=== PATIENT | female | born 1995 | race Caucasian/White ===

== ENCOUNTER 2019-11-16 12:43 | Observation (INO) ==
[2019-11-16] MEDS ORDERED: ALBUTEROL HFA 8 GM INHALER INH PRN ×2 (15:30→16:49)
[2019-11-16] MEDS ORDERED: ACETAMINOPHEN 500 MG TAB PO PRN (15:30)
[2019-11-16 16:00] LABS: Basophils # (auto) 0.02 K/uL (0-0.2); Basophils % (auto) 0.5 %; Eosinophils # (auto) 0.13 K/uL (0-0.5); Hematocrit (blood only) 39.7 % (37-47); Hemoglobin 12.4 g/dL (12.0-16.0); Lymphocytes # (auto) 1.84 K/uL (1.2-3.4); Mean Corpuscular Hemoglobin 29.5 pg (25-34); Mean Corpuscular Hgb Conc 31.2 g/dL (32-36); Mean Corpuscular Volume 94.3 fL (80-100); Mean Platelet Volume 10.1 fL (7.4-10.4); Monocytes # (auto) 0.28 K/uL (0.11-0.59); Monocytes % (auto) 6.4 %; Neutrophils # (auto) 2.11 K/uL (1.4-6.5); Neutrophils % (auto) 48.1 %; Platelet Count 146 K/uL (130-400); RDW Coefficient of Variation 13.3 % (11.5-14.5); RDW Standard Deviation 45.6 fL (36.4-46.3); Red Blood Count 4.21 M/uL (4.2-5.4); White Blood Count 4.38 K/uL (4.8-10.8)
[2019-11-16] MEDS ORDERED: OXYCODONE HCL IR 5 MG TAB (IMMEDIATE RELEASE) PO PRN (16:00)
[2019-11-16] MEDS: SODIUM CHLORIDE 0.9% 1000ML 1,000 ML IV SCH (16:11)
[2019-11-16 16:17] LABS: BUN Creatinine Ratio 27.9 (10-20); Blood Urea Nitrogen 17 mg/dl (7-18); Calcium 8.7 mg/dl (8.5-10.1); Carbon Dioxide 27 mmol/L (21-32); Chloride 108 mmol/L (98-107); Glucose 76 mg/dl (70-99); Potassium 4.2 mmol/L (3.5-5.1); Sodium 140 mmol/L (136-145)
--- NOTE | 2019-11-16 16:27 | History and Physical Report ---
DATE OF ADMISSION: 11/16/2019 CHIEF COMPLAINT: Right hip pain. SUBJECTIVE: The patient is a 24-year-old female with insidious onset of right hip and groin pain. She denies a history of trauma or fall. 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 She presented to the [facility] on 11/15/2019 for evaluation. X-rays and CAT scan revealed a nondisplaced right hip intertrochanteric fracture. She was sent home and referred to our office for evaluation. Today in our office, repeat x-rays revealed a nondisplaced hairline fracture of the right hip intertrochanteric region. After discussion with Dr. Ibrahim, it is recommended the patient be admitted to the hospital for cannulated screw fixation of her fracture. PAST MEDICAL HISTORY: Asthma, ADHD. PAST SURGICAL HISTORY: Oral surgery, tubes in ears as a child. MEDICATIONS: Include Ventolin inhaler 2 puffs q. 4-6 hours p.r.n., methylphenidate 40 mg q.a.m., women's multivitamin, Claritin daily, control daily. ALLERGIES: PENICILLIN, REACTION UNKNOWN. 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 PHYSICAL EXAMINATION: GENERAL: Well-nourished, well-developed, thin young female, who appears her stated age. HEENT: Normocephalic, atraumatic. Extraocular movements intact. Oropharynx pink and moist. NECK: Supple without adenopathy. LUNGS: Clear to auscultation bilaterally. HEART: Regular rate and rhythm. ABDOMEN: Soft, nontender, nondistended. EXTREMITIES: She has been nonweightbearing with crutches. Her right hip is irritable to passive range of motion. X-RAYS: X-rays and CT from the [facility] were reviewed as well as x-rays from our office today and shows a nondisplaced, vertical, hairline fracture through the intertrochanteric region. ASSESSMENT: A 24-year-old female with nondisplaced right hip fracture. PLAN: Above discussed with the patient. We will admit her to the hospital today. She will be strict nonweightbearing on the right lower extremity. Plan will be for ORIF of her fracture tomorrow with Dr. Ibrahim. We will make her n.p.o. after midnight. We will ask for medical clearance and proceed as indicated. Attending addendum: Patient seen and examined agree with above assessment and plan. MTDD
[2019-11-16] MEDS ORDERED: DiphenhydrAMINE HCL 50 MG/ML VIAL IV PRN (16:43)
[2019-11-16] MEDS ORDERED: NALOXONE HCL 0.4 MG/1 ML VIAL/CARP IV PRN (16:46)
[2019-11-16] MEDS ORDERED: bisacodyL 10 MG SUPP PR PRN (16:46)
[2019-11-16] MEDS ORDERED: MAGNESIUM HYDROXIDE SUSP 30 ML UDC PO PRN (16:46)
[2019-11-16] MEDS ORDERED: MoRPHine SULFATE 2 MG/ML CARP IV PRN (16:46)
--- NOTE | 2019-11-16 17:18 | Consultation ---
Date of Consultation November 16, 2019 Assessment & Plan (1) Closed fracture of right hip: Pt with closed, nondisplaced Right hip fracture without reported trauma. Pre-op labs unremarkable. No current asthma symptoms. -Pt low to moderate surgical risk -Ortho on board and plans for surgical procedure tomorrow -NPO midnight -DVT prophylaxis -SCDs -Continue oxycodone prn pain. If pt would develop recurrent itching plan to hold and give prn Benadryl -Morphine prn pain -Pre-op Covid testing pending (2) Asthma: No current asthma symptoms -Continue albuterol prn (3) ADHD: -Continue methylphenidate DVT Prophylaxis -SCDs Disposition per primary team Follows with Dr Petty for routine care Pt was seen and care coordinated with Dr Barney. See addendum Thank you for this consultation. We will follow the patient with you during their hospital stay. You can reach a member of the [facility] Hospitalist Team 27/10 via pager @ [phone]. Supervising Physician Co-Signing Physician Notes Patient is a 23-year-old female with history of asthma, ADHD and no other significant medical history presents with history of right hip pain which is been ongoing for last few days. Right hip pain is worse with any movement and with weightbearing. Imaging studies suggestive of nondisplaced cortical fracture base right femoral neck, partial intertrochanteric extension. Patient denies any trauma or fall. Denies any chest pain, shortness of breath, dizziness, nausea, abdominal pain. Offers no other complaints. On exam patient is moderately built and nourished, no apparent distress, normocephalic atraumatic, lungs are clear to auscultation, S1-S2, no murmur, abdomen soft, nontender, normal bowel sounds, right hip tender to palpation, decreased range of movement, grossly no focal neurologic deficits. Patient is consulted for preop medical clearance. Her asthma is well controlled and currently has no signs of exacerbation. Plan for possible surgery for right hip fracture tomorrow. Pain control, activity, DVT prophylaxis as per primary team. Continue bowel regimen to prevent constipation. Monitor for postop anemia. Nebs PRN for asthma. Continue methylphenidate. Agree with holding OCPs. I personally reviewed the record. Patient is interviewed and examined at bedside. Patient's care is coordinated with Dariana Herr PA-C. Please refer to the documentation above for details of patient's presentation and for discussion of other issues. History of Present Illness Requesting Physician: Dr Ibrahim Reason for Consultation: Pre-op evaluation Attending Physician: Kraig Ibrahim DO History of Present Illness Pt is 24 y/o F with PMH asthma, ADHD seen in consultation for pre-op evaluation. Pt with h/o right hip pain and was seen in ER yesterday and had CT hip with nondisplaced cortical fracture base right femoral neck. She was given crutches, oxycodone and had follow up with ortho today. Pt is admitted to hospital today for planned surgical procedure tomorrow. Pt denies any history of trauma, or any falls or known injuries. Reports walks for her job. Denies LE paresthesias. Denies h/o prior fractures. Pt reports takes Flovent only in the winter months for her asthma. Currently reports asthma is well controlled and denies any SOB, wheezing, CP, cough, fever or chills. Denies h/o other steroid use. Denies diaphoresis, N/V/D/C, PARKS, dizziness, syncope, vision changes, neck pain, orthopnea, palpitations, sore throat, choking, otalgia, rhinorrhea, abdominal pain, paresthesias, extremity weakness, extremity edema, rashes, urinary symptoms. Allergies Allergy/AdvReac Type Severity Reaction Status Date / Time Penicillins Allergy Severe Swelling Verified 11/15/19 21:36 of throat Home Medications Home Medications Medication Instructions Recorded Confirmed Type albuterol sulfate [Ventolin HFA] 2 puff INHALATION QID PRN 11/15/19 11/16/19 History desogestrel-ethinyl estradiol 1 tab PO DAILY 11/15/19 11/16/19 History [Apri] loratadine [Claritin] 10 mg PO DAILY PRN 11/15/19 11/16/19 History methylphenidate HCl 40 mg PO QAM 11/15/19 11/16/19 History hgpyasbb-budv-AD-calcium-mins 1 tab PO DAILY 11/15/19 11/16/19 History [Women's One Daily] Patient History Medical History (Updated 11/16/19 @ 17:17 by Dariana Herr PA-C) ADHD Asthma Asthma exacerbation Surgical History (Updated 11/16/19 @ 17:17 by Dariana Herr PA-C) History of wisdom tooth extraction Family History (Updated 11/16/19 @ 17:23 by Dariana Herr PA-C) Grandfather Leukemia Other Anxiety Depression Social History Smoking Status: Never smoker Hx Alcohol Use: No Hx Substance Use: No Preferred Language: Citizen Of The [place] Communication Ability: Effective Line Director Required: No Beliefs That Will Affect Care: None Current Living Situation: Family Current Living Situation Comment: boyfriend and parents Feels Safe at Home: Yes Safety Concerns: Feels Safe At This Time Review of Systems Review of Systems: All systems reviewed & are unremarkable except as noted in HPI & below Physical Exam Physical Exam: General: no distress, WDWN Head: normocephalic, atraumatic Eyes: conjunctiva non-injected, anicteric ENT: normal inspection external ears, nose, mucous membranes moist Neck: supple, trachea midline Lungs: clear, no respiratory distress, no wheezing/rhonchi/rales CV: RRR, no murmur,no pretibial edema Abd: normal BS, soft, non-tender Ext: no cyanosis, no calf tenderness; Right hip without edema or ecchymosis, tenderness to palpation lateral aspect hip, sensation to light touch distal extremities intact Neuro: A&O x 3, no focal deficits noted, normal affect Skin: warm, dry Results & Data ([facility]) Vital Signs (Past 12 Hours) Vital Signs Temp Pulse Resp BP Pulse Ox 11/16/19 14:21 36.6 C 57 L 20 121/81 99 Laboratory Results Short CBC 11/16/19 Range/Units 15:20 WBC 4.38 L (4.8-10.8) K/uL Hgb 12.4 (12.0-16.0) g/dL Hct 39.7 (37-47) % Plt Count 146 (130-400) K/uL BMP 11/16/19 15:20 Sodium 140 Potassium 4.2 Chloride 108 H Carbon Dioxide 27 BUN 17 Creatinine 0.61 Glucose 76 Calcium 8.7 (1) Closed fracture of right hip Encounter type: initial encounter Qualified Code(s): S72.001A - Fracture of unspecified part of neck of right femur, initial encounter for closed fracture
[2019-11-16 19:54] LABS: Pregnancy Test, Urine Negative (Negative)
[2019-11-16] MEDS: DOCUSATE SODIUM 100 MG CAP PO SCH (20:09)
[2019-11-16] MEDS: DOCUSATE SODIUM/SENNA 50/8.6MG TAB PO SCH (20:09)
[2019-11-16] MEDS ORDERED: HYDROCODONE/ACETAMOPHEN 5/325MG TAB PO PRN (21:14)
[2019-11-16] MEDS: LORATADINE 10 MG TAB PO SCH (22:12)
[2019-11-16 22:42] LABS: Prothrombin Time 10.7 Seconds (9.0-12.0)
[2019-11-17] MEDS ORDERED: CLINDAMYCIN 600 MG/54 ML BAG IV SCH (06:00)
[2019-11-17] MEDS: SODIUM CHLORIDE 0.9% 1000ML 1,000 ML IV SCH ×2 (06:44→19:44)
[2019-11-17] MEDS: DOCUSATE SODIUM 100 MG CAP PO SCH ×2 (09:12→20:54)
[2019-11-17] MEDS: PANTOprazole 40 MG TAB PO SCH (09:12)
[2019-11-17] MEDS: METHYLPHENIDATE HCL 10 MG TABLET PO SCH (09:21)
[2019-11-17] MEDS ORDERED: PROPOFOL IV EMULSION 10 MG/ML 20 ML VIAL IV ONE (12:34)
[2019-11-17] MEDS ORDERED: LIDOCAINE HCL 2% 2 ML VIAL/AMP(20MG/ML) INFIL ONE (12:34)
[2019-11-17] MEDS ORDERED: DEXAMETHASONE SOD INJ 4 MG/ML VIAL ONE ×2 (12:34→14:53)
[2019-11-17] MEDS ORDERED: fentaNYL citrate 100 MCG/2 ML VIAL ONE (12:35)
[2019-11-17] MEDS ORDERED: MIDAZOLAM HCL 1 MG/ML 2ML VIAL ONE (12:35)
--- NOTE | 2019-11-17 12:54 | Anesthesiology Consultation ---
Date of Service November 17, 2019 Assessment & Plan Chart Review Chart Review: Acceptable Risk for Surgery Consults Requested none History Surgery Operation Date: 11/17/19 08:50 Proposed Procedures p Open Reduction Internal Fixation of Right Hip with 7.3 Cannulated Screw - Kraig Ibrahim DO Height/Weight Height: 5 ft 3 in Weight: 48.3 kg Allergies Allergy/AdvReac Type Severity Reaction Status Date / Time Penicillins Allergy Severe Swelling Verified 11/15/19 21:36 of throat oxycodone AdvReac Mild itch Verified 11/16/19 21:14 Medications Home Medications Medication Instructions Recorded Confirmed Last Taken albuterol sulfate [Ventolin HFA] 2 puff INHALATION QID PRN 11/15/19 11/16/19 Unknown desogestrel-ethinyl estradiol 1 tab PO DAILY 11/15/19 11/16/19 11/15/19 [Apri] loratadine [Claritin] 10 mg PO DAILY PRN 11/15/19 11/16/19 Unknown methylphenidate HCl 40 mg PO QAM 11/15/19 11/16/19 11/16/19 ssgqmhzj-yjnj-EQ-calcium-mins 1 tab PO DAILY 11/15/19 11/16/19 Unknown [Women's One Daily] Active Medications Generic Name Dose Route Start Last Admin Trade Name Albertoq PRN Reason Stop Dose Admin Docusate Sodium 100 mg 11/16/19 21:00 11/17/19 09:12 Docusate Sodium 100 Mg Cap PO 12/16/19 20:59 Not Given BID NIMO Sodium Chloride 1,000 mls @ 60 mls/hr 11/16/19 15:25 11/17/19 06:44 Nss 1000ml IV 12/16/19 15:24 60 mls/hr .[id number] NIMO Administration Loratadine 10 mg 11/16/19 21:15 11/16/19 22:12 Loratadine 10 Mg Tab PO 12/16/19 21:14 10 mg HS NIMO Administration Methylphenidate HCl 40 mg 11/17/19 09:00 11/17/19 09:21 Methylphenidate Hcl 10 Mg Tablet PO 12/01/19 08:59 40 mg QAM NIMO Administration Miscellaneous 1 ea 11/17/19 00:00 11/17/19 09:12 *Methylphenidate Er 40 Mg*Order Awaiting Action N/A 12/17/19 00:00 Not Given QS NIMO Pantoprazole Sodium 40 mg 11/17/19 09:00 11/17/19 09:12 Pantoprazole 40 Mg Tab PO 12/17/19 08:59 Not Given QAM NIMO Senna/Docusate Sodium 2 tab 11/16/19 21:00 11/16/19 20:09 Docusate Sodium/Senna 50/8.6mg Tab PO 12/16/19 20:59 2 tab HS NIMO Administration NPO Date Last Intake of Fluids: 11/16/19 Time Last Intake of Fluids: 17:30 Date Last Intake of Solids: 11/16/19 Time Last Intake of Solids: 17:30 Past Medical History Medical History ADHD Asthma Asthma exacerbation Past Family History Family History Grandfather Leukemia Other Anxiety Depression Past Surgical History Surgical History History of wisdom tooth extraction Social History Smoking Status: Never smoker Hx Alcohol Use: No Hx Substance Use: No Physical Exam Vital Signs Last Vital Signs Temp 36.8 C 11/17/19 12:10 Pulse 81 11/17/19 12:10 Resp 18 11/17/19 12:10 BP 101/65 11/17/19 12:10 Pulse Ox 100 11/17/19 12:10 Testing Laboratory Results 11/16/19 15:20 11/16/19 15:20 PT 10.7 Seconds (9.0-12.0) 11/16/19 22:19 INR 1.0 (0.9-1.1) 11/16/19 22:19 Urine Test Negative (Negative) 11/16/19 19:15 Blood Type A Negative 11/16/19 15:27 Antibody Screen NEGATIVE 11/16/19 15:27 11/16/19 19:15 Urine Test Negative
[2019-11-17] MEDS ORDERED: HYDROmorphone INJ 2 MG/ML SYR/VIAL IV PRN (12:55)
[2019-11-17] MEDS ORDERED: ATROPINE SULFATE 0.1 MG/ML 10ML SYR IV PRN (12:55)
[2019-11-17] MEDS ORDERED: ONDANSETRON INJ 2 MG/ML 2 ML VIAL IV PRN ×2 (12:55→16:47)
[2019-11-17] MEDS ORDERED: ePHEDrine sulfate 50 MG/ML AMP IV PRN (12:55)
[2019-11-17] MEDS ORDERED: METOCLOPRAMIDE HCL INJ 5 MG/ML 2 ML VIAL IV PRN (12:55)
[2019-11-17] MEDS ORDERED: PROMETHAZINE HCL 12.5 MG in SODIUM CHLORIDE 0.9% 50 ML IV PRN (12:55)
--- NOTE | 2019-11-17 13:08 | History & Physical Bridge Note ---
Date of Service November 17, 2019 History & Physical Bridge Note I have examined the patient, reviewed the History & Physical and in the interval since the performance of the History & Physical I have noted the following changes of clinical significance: no changes noted
[2019-11-17] MEDS ORDERED: BUPIVACAINE 0.5 % 5 MG/1 ML MPF 30ML VIAL ONE (13:11)
[2019-11-17] MEDS ORDERED: EPINEPHrine INJ 1 MG/ML AMP ONE (13:11)
--- NOTE | 2019-11-17 13:11 | Orthopedic Progress Note ---
Date of Service November 17, 2019 Assessment & Plan (1) Closed fracture of right hip: I have indicated the patient for open reduction internal fixation of right hip fracture with dynamic hip screw versus cephalo-medullary nail, the risk, benefits, complications, alternatives to the surgery were explained to the patient in detail which include however not limited to infections, blood clots, acute blood loss, injury to surrounding nerves, bone, vessels, soft tissue, chronic pain, arthrofibrosis, malunion, nonunion, failure of the implant, need for additional surgery, osteonecrosis, loss of limb and loss of life. Alternatives to surgery included no surgery which would result in worsening symptoms. The patient was to proceed with surgical intervention at this time and informed consent was obtained. Admission and Anticipated Discharge Date Admission Date: November 16, 2019 Subjective The patient was seen in preoperative holding, comfortable, no acute issues, pain well controlled. Medically optimized for surgery. Review of Systems Review of Systems: All systems reviewed & are unremarkable except as noted in HPI & below Constitutional: as per Subjective / HPI Physical Exam Physical Exam: Right lower extremity is neurovascular sensory intact, compartment soft nontender, skin overlying right hip clean dry and intact, +2 dorsalis pedis pulse. Constitutional: WD/WN, vitals as above Results & Data ([facility]) Vital Signs (Past 12 Hours) Vital Signs Temp Pulse Resp BP BP Pulse Ox 11/17/19 12:10 36.8 C 81 18 101/65 100 11/17/19 07:42 36.9 C 64 14 106/70 95 (1) Closed fracture of right hip Encounter type: initial encounter Qualified Code(s): S72.001A - Fracture of unspecified part of neck of right femur, initial encounter for closed fracture
[2019-11-17] MEDS ORDERED: ONDANSETRON INJ 2 MG/ML 2 ML VIAL ONE (14:54)
[2019-11-17] MEDS ORDERED: ePHEDrine sulfate 50 MG/ML SYR ONE (14:54)
--- NOTE | 2019-11-17 15:00 | Post Operative Brief Note ---
Immediate Post Op Note v1 Date of Surgery November 17, 2019 Pre & Post Diagnosis Operation Date: 11/17/19 08:50 Pre-Op Diagnosis: nondisplaced femoral neck fracture of right hip Post-Op Diagnosis: nondisplaced femoral neck fracture of right hip I identified the patient and participated in the time-out.: Yes Procedure Operation Date: 11/17/19 08:50 Actual Procedures p Open Reduction Internal Fixation of Right Hip with Dynamic Hip Screw(Right) - Kraig Ibrahim DO Surgeon Kraig Ibrahim DO Bulkhead Carpenter NONE Estimated Blood Loss 50 Findings Consistent with Post-Op Diagnosis Fluids 1000 cc LR Specimens femoral head Anesthesia Type General Complications none Disposition Disposition: Recovery Room Overlapping Procedure I was present for: the critical portions of procedure. I was immediately available: during the entire case. Back up surgeon: was not required during procedure.
--- NOTE | 2019-11-17 15:01 | Operative Report ---
Post Operative Report Pre & Post Diagnosis Operation Date: 11/17/19 08:50 Pre-Op Diagnosis: nondisplaced femoral neck fracture of right hip Post-Op Diagnosis: nondisplaced femoral neck fracture of right hip I identified the patient and participated in the time-out.: Yes Procedure Operation Date: 11/17/19 08:50 Actual Procedures p Open Reduction Internal Fixation of Right Hip with Dynamic Hip Screw(Right) - Kraig Ibrahim DO Surgeon Kraig Ibrahim, Instructor Flying NONE Estimated Blood Loss 50 Findings Consistent with Post-Op Diagnosis Fluids 1000 cc LR Specimens none Anesthesia Type General Complications none Disposition Disposition: Recovery Room Indications The patient is a 24 year old female who presents with c/o acute atrauamtic right hip pain since 11/08/19. 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 She was seen at [facility] on 11/15/19 for worsening pain, XRs and CT revealed nondisplaced fracture of the femoral neck with extension into the IT region, likely stress induced in the absence of trauma. Patient was seen at [facility] office on 11/16/19 and immediately we directly admitted the patient for further treatment of her stress fracture. I have indicated the patient for open reduction internal fixation of right hip fracture with dynamic hip screw versus cephalo-medullary nail, the risk, benefits, complications, alternatives to the surgery were explained to the patient in detail which include however not limited to infections, blood clots, acute blood loss, injury to surrounding nerves, bone, vessels, soft tissue, chronic pain, arthrofibrosis, malunion, nonunion, failure of the implant, need for additional surgery, osteonecrosis, loss of limb and loss of life. Alternatives to surgery included no surgery which would result in worsening symptoms. The patient was to proceed with surgical intervention at this time and informed consent was obtained. Description of Procedure Following induction of adequate general anesthesia, the patient was placed on the fracture table. The left leg was placed in the well leg alanis and the right leg in the traction leg alanis. All bony prominences were protected. Utilizing c-arm fluoroscopy pre-operative imaging was obtained. Once satisfied with positioning the right hip was prepped and draped in the usual sterile manner. A time out was performed and site verified. Appropriate IV antibiotics were verified and given. The incision was made laterally over the hip, just distal to the lesser trochanter. Subcutaneous tissue was sharply dissected down to the fascia, electrocautery used for hemostasis. The fascia andriy was split longitudinally and the vastus lateralis was reflected anteriorly until we were down to bone. A Damian elevator was used to clear bone of soft tissue. Next, the DHS angle guide was placed on bone and position verified with c-arm. A 2.5mm threaded guide was placed centered into the femoral head. Positioning of guide wire was verified with c-arm both AP and lateral views. Guide wire insertion depth was measured at 80mm. Next, reaming was performed over the guide wire with the triple reamer followed by tapping. The lag screw was then inserted to the desired depth insuring handle was parallel to the femoral shaft. The 135 degree DHS 2-hole plate was inserted over the lag screw and gently seated into place with the impactor. Next using AO standard screw insertion technique, two 4.5mm cortex screws measuring 32mm and 30mm were inserted fixing the plate to bone. Final radiographs were obtained utilizing c-arm fluoroscopy to confirm overall position of the implants and fracture reduction. Incision was irrigated with copious amounts of sterile saline solution. Subcutaneous tissue were injected utilizing .5% marcaine with epi. Deep closure was performed using #1 Vicryl followed by 2-0 Vicryl for subcutaneous tissues. The skin was closed utilizing a 3-0 stratafix and Dermabond Prineo glue closure. Sterile dressings were applied which included Telfa, 4 x 4's and Tegaderm. The patient tolerated the procedure well, extubated in the OR and was transported to the PACU in stable condition. I attest to the content of the Intraoperative Record and any orders documented therein. Any exceptions are noted below.
[2019-11-17] MEDS: fentaNYL citrate 100 MCG/2 ML VIAL IV PRN ×3 (15:19→15:44)
--- NOTE | 2019-11-17 15:38 | Hospitalist Progress Note ---
Date of Service November 17, 2019 Assessment & Plan (1) Closed fracture of right hip: ' Nondisplaced femoral neck fracture of Right Hip Right Hip CT:Nondisplaced cortical fracture base right femoral neck, with partial intertrochanteric extension. No evidence for dislocation or acetabular protrusion. Denies Trauma/Fall Planned for ORIF today Pain control, activity, DVT prophylaxis as per family Bowel regimen to prevent constipation Monitor for postop anemia Check Vit D levels Appreciate Orthopedics help PT/OT as able (2) Asthma: No signs of exacerbation Continue albuterol PRN (3) ADHD: Continue methylphenidate DVT Px SCDs for now Disposition As per primary team Admission and Anticipated Discharge Date Admission Date: November 16, 2019 Subjective Patient is seen and examined at bedside Denies any significant right hip pain this morning Family at bedside Denies any chest pain, shortness of breath, dizziness, nausea, abdominal pain No events overnight Plan for right hip surgery today Review of Systems Review of Systems: All systems reviewed & are unremarkable except as noted in HPI & below Physical Exam Physical Exam: Physical Exam: Vitals signs as noted above General Appearance:Moderately built and nourished, no apparent distress Head: normocephalic, Atraumatic Eyes: normal inspection, EOMI Neck: supple, Trachea midline Respiratory/Chest: Normal breath sounds, CTA Cardiovascular: S1, S2, No murmur Abdomen/GI:Soft, Non tender, Bowel sounds present Extremities/Musculoskelatal:normal inspection, no edema, Right hip tender, decreased ROM Neurologic/Psych:AAOX3, grossly no focal neurological deficits Skin: normal color, warm Results & Data Results & Data ([facility]) Vital Signs (Past 12 Hours) Vital Signs Temp Pulse Pulse Resp BP BP Pulse Ox 11/17/19 15:20 75 12 118/64 100 11/17/19 15:10 36.9 C 71 16 121/70 100 11/17/19 12:10 36.8 C 81 18 101/65 100 11/17/19 07:42 36.9 C 64 14 106/70 95 Laboratory Results Short CBC 11/16/19 Range/Units 15:20 WBC 4.38 L (4.8-10.8) K/uL Hgb 12.4 (12.0-16.0) g/dL Hct 39.7 (37-47) % Plt Count 146 (130-400) K/uL BMP 11/16/19 15:20 Sodium 140 Potassium 4.2 Chloride 108 H Carbon Dioxide 27 BUN 17 Creatinine 0.61 Glucose 76 Calcium 8.7 (1) Closed fracture of right hip Encounter type: initial encounter Qualified Code(s): S72.001A - Fracture of unspecified part of neck of right femur, initial encounter for closed fracture
--- NOTE | 2019-11-17 16:09 | Anesthesiology Progress Note ---
Date of Service November 17, 2019 Anesthesia Post Procedure Vital Signs Vital Signs: Temp Pulse Pulse Resp BP BP Pulse Ox 11/17/19 15:50 86 13 99/54 L 98 11/17/19 15:40 84 13 99/69 L 96 11/17/19 15:30 83 18 118/65 99 11/17/19 15:20 75 12 118/64 100 11/17/19 15:10 36.9 C 71 16 121/70 100 11/17/19 12:10 36.8 C 81 18 101/65 100 11/17/19 07:42 36.9 C 64 14 106/70 95 11/16/19 23:32 36.8 C 68 18 96/55 L 98 Pain Intensity Right Hip: Pain Intensity: 6 Transfer of Care Handoff Completed per policy Notes Mental Status: alert / awake / arousable and participated in evaluation Patient Amnestic to Procedure: Yes Nausea / Vomiting: adequately controlled Pain: adequately controlled Airway Patency, RR, SpO2: stable & adequate BP & HR: stable & adequate Hydration State: stable & adequate Anesthetic Complications: no major complications apparent
--- NOTE | 2019-11-17 16:25 | XRay Report ---
XR hip RT 2V w pelvis CLINICAL HISTORY: s/p right hip ORIF COMPARISON STUDY: Right hip 11/15/2019. FINDINGS: Status post internal fixation of a right basicervical femoral neck fracture with a dynamic hip screw. The hardware is intact. Alignment is anatomic. No dislocation. Soft tissue swelling and ga s lateral to the right hip consistent with postoperative changes. IMPRESSION: Status post internal fixation of a right femoral neck fracture. The hardware is intact. ACT 112: Negative or not required by law. Electronically signed by: Kendell Welch M.D. 11/17/2019 4:24 PM
[2019-11-17] MEDS ORDERED: NALOXONE HCL 0.4 MG/1 ML VIAL/CARP IV PRN (16:40)
--- NOTE | 2019-11-17 16:57 | Orthopedic Progress Note ---
Date of Service November 17, 2019 Assessment & Plan (1) Closed fracture of right hip: s/p ORIF right hip fracture, DHS -clinda x 24 -DVT PPX: SCDs, TEDs, 81mg ASA BID -50% WB RLE -PT/OT -PO XR: demonstrates well aligned, well fixed implant, anatomic alignment of fracture -a.m. labs -DC Planning Admission and Anticipated Discharge Date Admission Date: November 16, 2019 Subjective Post Operative Progress Note Patient seen in PACU, comfortable, denies complaints, pain well controlled, no acute issues. Review of Systems Review of Systems: All systems reviewed & are unremarkable except as noted in HPI & below Constitutional: as per Subjective / HPI Physical Exam Physical Exam: RLE NVSI +EHL/FHL/TA/GS SILT grossly, +2 DP pulse, compartments soft NT, dressing cdi. Constitutional: WD/WN, vitals as above Results & Data ([place]) Vital Signs (Past 12 Hours) Vital Signs Temp Pulse Pulse Resp BP BP Pulse Ox 11/17/19 16:20 36.9 C 70 10 L 95/54 L 100 11/17/19 16:10 79 12 104/55 L 100 11/17/19 16:00 84 18 105/69 91 11/17/19 15:50 86 13 99/54 L 98 11/17/19 15:40 84 13 99/69 L 96 11/17/19 15:30 83 18 118/65 99 11/17/19 15:20 75 12 118/64 100 11/17/19 15:10 36.9 C 71 16 121/70 100 11/17/19 12:10 36.8 C 81 18 101/65 100 11/17/19 07:42 36.9 C 64 14 106/70 95 (1) Closed fracture of right hip Encounter type: initial encounter Qualified Code(s): S72.001A - Fracture of unspecified part of neck of right femur, initial encounter for closed fracture
[2019-11-17] MEDS: DOCUSATE SODIUM/SENNA 50/8.6MG TAB PO SCH (20:54)
[2019-11-17] MEDS: LORATADINE 10 MG TAB PO SCH (20:54)
[2019-11-17] MEDS: CLINDAMYCIN 600 MG in DEXTROSE 5% 50 ML IV SCH (20:57)
[2019-11-18] MEDS: CLINDAMYCIN 600 MG in DEXTROSE 5% 50 ML IV SCH ×2 (05:28→14:32)
[2019-11-18] MEDS: SODIUM CHLORIDE 0.9% 1000ML 1,000 ML IV SCH ×2 (05:31→14:32)
[2019-11-18 06:35] LABS: Eosinophils # (auto) 0.03 K/uL (0-0.5); Eosinophils % (auto) 0.5 %; Hematocrit (blood only) 34.9 % (37-47); Hemoglobin 11.7 g/dL (12.0-16.0); Immature Granulocytes # (auto) 0.01 K/uL (0.00-0.02); Immature Granulocytes % (auto) 0.2 %; Lymphocytes # (auto) 1.18 K/uL (1.2-3.4); Lymphocytes % (auto) 19.5 %; Mean Corpuscular Hgb Conc 33.5 g/dL (32-36); Mean Corpuscular Volume 92.3 fL (80-100); Mean Platelet Volume 10.5 fL (7.4-10.4); Monocytes # (auto) 0.49 K/uL (0.11-0.59); Monocytes % (auto) 8.1 %; Neutrophils # (auto) 4.33 K/uL (1.4-6.5); Neutrophils % (auto) 71.7 %; Platelet Count 140 K/uL (130-400); RDW Coefficient of Variation 12.9 % (11.5-14.5); RDW Standard Deviation 43.6 fL (36.4-46.3); Red Blood Count 3.78 M/uL (4.2-5.4); White Blood Count 6.04 K/uL (4.8-10.8)
[2019-11-18 07:19] LABS: BUN Creatinine Ratio 17.2 (10-20); Calcium 8.4 mg/dl (8.5-10.1); Creatinine Clr Calc Pharmacy 105.8 ml/min; Est GFR (African American) 145.3; Est GFR (Non-African American) 125.3; Potassium 4.3 mmol/L (3.5-5.1)
--- NOTE | 2019-11-18 07:38 | Orthopedic Progress Note ---
Date of Service November 18, 2019 Assessment & Plan (1) Closed fracture of right hip: s/p ORIF right hip fracture, DHS POD#1 -clinda x 24 -DVT PPX: SCDs, TEDs, 81mg ASA BID -50% WB RLE -PT/OT -PO XR: demonstrates well aligned, well fixed implant, anatomic alignment of fracture -a.m. labs - as above, hgb 11.7 -DC Planning Admission and Anticipated Discharge Date Admission Date: November 16, 2019 Subjective Post Operative Progress Note Patient seen sitting up in bed, comfortable, denies complaints, pain well controlled, no acute issues. Denies F/C/N/V/SOB/CP. Review of Systems Review of Systems: All systems reviewed & are unremarkable except as noted in HPI & below Constitutional: as per Subjective / HPI Physical Exam Physical Exam: RLE NVSI +EHL/FHL/TA/GS SILT grossly, +2 DP pulse, compartments soft NT, dressing cdi. Constitutional: WD/WN, vitals as above Results & Data ([facility]) Vital Signs (Past 12 Hours) Vital Signs Temp Pulse Resp BP Pulse Ox 11/18/19 03:57 36.8 C 83 16 97/53 L 98 11/17/19 23:26 36.7 C 61 16 106/65 98 Laboratory Results 11/18/19 11/18/19 11/18/19 Range/Units 05:52 05:52 05:52 WBC 6.04 (4.8-10.8) K/uL RBC 3.78 L (4.2-5.4) M/uL Hgb 11.7 L (12.0-16.0) g/dL Hct 34.9 L (37-47) % MCV 92.3 (80-100) fL MCH 31.0 (25-34) pg MCHC 33.5 (32-36) g/dL RDW Std Deviation 43.6 (36.4-46.3) fL RDW Coeff of Stephon 12.9 (11.5-14.5) % Plt Count 140 (130-400) K/uL MPV 10.5 H (7.4-10.4) fL Immature Gran % (Auto) 0.2 % Neut % (Auto) 71.7 % Lymph % (Auto) 19.5 % [place] % (Auto) 8.1 % Eos % (Auto) 0.5 % Baso % (Auto) 0.0 % Neut # (Auto) 4.33 (1.4-6.5) K/uL Lymph # (Auto) 1.18 L (1.2-3.4) K/uL [place] # (Auto) 0.49 (0.11-0.59) K/uL Eos # (Auto) 0.03 (0-0.5) K/uL Baso # (Auto) 0.00 (0-0.2) K/uL Immature Gran # (Auto) 0.01 (0.00-0.02) K/uL Sodium 139 (136-145) mmol/L Potassium 4.3 (3.5-5.1) mmol/L Chloride 108 H (98-107) mmol/L Carbon Dioxide 25 (21-32) mmol/L Anion Gap 5.0 (3-11) BUN 11 (7-18) mg/dl Creatinine 0.62 (0.6-1.2) mg/dl Est Cr Clr Drug Dosing 105.8 ml/min Est GFR ( Amer) 145.3 Est GFR (Non-Af Amer) 125.3 BUN/Creatinine Ratio 17.2 (10-20) Glucose 103 H (70-99) mg/dl Calcium 8.4 L (8.5-10.1) mg/dl 25-OH Vitamin D Total Pending (1) Closed fracture of right hip Encounter type: initial encounter Qualified Code(s): S72.001A - Fracture of unspecified part of neck of right femur, initial encounter for closed fracture
--- NOTE | 2019-11-18 07:43 | Anesthesiology Progress Note ---
Date of Service November 18, 2019 Anesthesia Post Procedure Vital Signs Vital Signs: Temp Pulse Pulse Resp BP Pulse Ox 11/18/19 03:57 36.8 C 83 16 97/53 L 98 11/17/19 23:26 36.7 C 61 16 106/65 98 11/17/19 17:51 36.5 C 70 16 96/56 L 97 11/17/19 17:05 36.3 C L 68 14 97/65 L 99 11/17/19 16:30 36.3 C L 67 14 107/63 93 11/17/19 16:20 36.9 C 70 10 L 95/54 L 100 11/17/19 16:10 79 12 104/55 L 100 11/17/19 16:00 84 18 105/69 91 11/17/19 15:50 86 13 99/54 L 98 11/17/19 15:40 84 13 99/69 L 96 11/17/19 15:30 83 18 118/65 99 11/17/19 15:20 75 12 118/64 100 11/17/19 15:10 36.9 C 71 16 121/70 100 11/17/19 12:10 36.8 C 81 18 101/65 100 Pain Intensity Right Hip: Pain Intensity: 8 Notes Mental Status: alert / awake / arousable and participated in evaluation Patient Amnestic to Procedure: Yes Nausea / Vomiting: adequately controlled Pain: adequately controlled Airway Patency, RR, SpO2: stable & adequate BP & HR: stable & adequate Hydration State: stable & adequate Anesthetic Complications: no major complications apparent and Pt Satisfied with anesthetic care
[2019-11-18] MEDS: PANTOprazole 40 MG TAB PO SCH (08:55)
[2019-11-18] MEDS: DOCUSATE SODIUM 100 MG CAP PO SCH (08:56)
[2019-11-18] MEDS: METHYLPHENIDATE HCL 10 MG TABLET PO SCH (08:58)
[2019-11-18] MEDS ORDERED: ASPIRIN 81 MG ECTAB PO SCH (09:00)
[2019-11-18] MEDS ORDERED: TRAMADOL HCL 50 MG TABLET PO PRN (11:55)
--- NOTE | 2019-11-18 12:26 | Fluoroscopy Report ---
FL hip RT 2-3V CLINICAL HISTORY: RT ORIF CANNULATED SCREWS COMPARISON STUDY: Right hip 11/15/2019. FLUOROSCOPY TIME: 1 minute and 27 seconds. FINDINGS: 2 fluoroscopic spot images of the right hip demonstrate a dynamic hip screw traversing the femoral neck fracture. The hardware appears intact. The alignment is anatomic. IMPRESSION: Fluoroscopy provided for internal fixation of a right femoral neck fracture. ACT 112: Negative or not required by law. Electronically signed by: Kendell Welch M.D. 11/18/2019 12:25 PM
--- NOTE | 2019-11-18 13:35 | Hospitalist Progress Note ---
Date of Service November 18, 2019 Assessment & Plan (1) Closed fracture of right hip: ' Nondisplaced femoral neck fracture of Right Hip Right Hip CT:Nondisplaced cortical fracture base right femoral neck, with partial intertrochanteric extension. No evidence for dislocation or acetabular protrusion. Denies Trauma/Fall S/P Right Hip ORIF POD #1 Pain control, activity, DVT prophylaxis as per family Bowel regimen to prevent constipation 50% weightbearing of right lower extremity as per Ortho Hb fairly stable, monitor CBC Vit D levels: wnl Appreciate Orthopedics help Continue PT/OT (2) Asthma: No signs of exacerbation Continue albuterol PRN (3) ADHD: Continue methylphenidate DVT Px SCDs for now Disposition As per primary team Admission and Anticipated Discharge Date Admission Date: November 16, 2019 Subjective Patient is seen and examined at bedside Doing well postop Right hip pain at surgical site is controlled Had BM Did well with PT Denies any chest pain, SOB, dizziness, nausea, abdominal pain Hb 11.7 today Review of Systems Review of Systems: All systems reviewed & are unremarkable except as noted in HPI & below Physical Exam Physical Exam: Physical Exam: Vitals signs as noted above General Appearance:Moderately built and nourished, no apparent distress Head: normocephalic, Atraumatic Eyes: normal inspection, EOMI Neck: supple, Trachea midline Respiratory/Chest: Normal breath sounds, CTA Cardiovascular: S1, S2, No murmur Abdomen/GI:Soft, Non tender, Bowel sounds present Extremities/Musculoskelatal:normal inspection, no edema, Right hip tender, surgical site in dressing Neurologic/Psych:AAOX3, grossly no focal neurological deficits Skin: normal color, warm Results & Data Results & Data ([facility]) Vital Signs (Past 12 Hours) Vital Signs Temp Pulse Resp BP Pulse Ox 11/18/19 11:14 114/70 11/18/19 07:56 36.7 C 55 L 16 104/67 100 11/18/19 03:57 36.8 C 83 16 97/53 L 98 Laboratory Results Short CBC 11/18/19 Range/Units 05:52 WBC 6.04 (4.8-10.8) K/uL Hgb 11.7 L (12.0-16.0) g/dL Hct 34.9 L (37-47) % Plt Count 140 (130-400) K/uL BMP 11/18/19 05:52 Sodium 139 Potassium 4.3 Chloride 108 H Carbon Dioxide 25 BUN 11 Creatinine 0.62 Glucose 103 H Calcium 8.4 L (1) Closed fracture of right hip Encounter type: initial encounter Qualified Code(s): S72.001A - Fracture of unspecified part of neck of right femur, initial encounter for closed fracture
--- NOTE | 2019-11-18 21:25 | Discharge Summary ---
Date of Service November 18, 2019 Principal Diagnosis Open reduction internal fixation right hip -Right hip fracture Discharge Exam RLE NVSI +EHL/FHL/TA/GS SILT grossly, +2 DP pulse, compartments soft NT, dressing cdi. Constitutional WD/WN, vitals as above Discharge Data Allergies Allergy/AdvReac Type Severity Reaction Status Date / Time Penicillins Allergy Severe Swelling Verified 11/15/19 21:36 of throat oxycodone AdvReac Mild itch Verified 11/16/19 21:14 Consultations 11/16/19 14:55 Consult Internal Medicine Routine 11/16/19 16:46 Consult Case Management - Discharge Planning Routine 11/16/19 18:31 Consult Anesthesiology Routine 11/17/19 16:40 Consult Case Management - Discharge Planning Routine Procedures Performed Operation Date: 11/17/19 08:50 Actual Procedures p Open Reduction Internal Fixation of Right Hip with Dynamic Hip Screw(Right) - Kraig Ibrahim DO Ordered Studies 11/17/19 12:00 FL fluoroscopy <1hr Routine 11/17/19 13:00 FL hip RT 2-3V Routine Discharge Plan Discharge Items Patient Disposition: Home - Self-Care Reason For Visit: RIGHT HIP FRACTURE Discharge Diagnosis: Open reduction internal fixation right hip -Right hip fracture Condition on Discharge: Good Activity: Per Instructions section Lifting: Wait until after follow-up appointment Bathing: Keep incision dry Bathing Comment: No bathing, pools or hot tubs. Sexual Activity: Wait until after follow-up appointment Exercise/Sports: Wait until after follow-up appointment Driving/Machine Use: No driving Weightbearing: Full weightbearing Non-emergency contact: Primary Care Provider and Surgeon Call non-emergency contact if: you have any medication questions, your symptoms worsen, your pain is not controlled, your pain is worsening, your pain is unusual for you, your pain is concerning for you, you have a fever, your temperature is above 101, your wound has increased redness, your wound has increased drainage and your wound pain has increased Follow-up/Referrals: Patricio Petty MD [Primary Care Provider] - Diet: Regular Addtl Attending Provider Instructions: YOU CAN RESUME YOUR CONTROL MEDICATION IN 1 MONTH. [facility] DISCHARGE INSTRUCTIONS: HIP FRACTURE SELF CARE INSTRUCTIONS: A. You are to ambulate with a walker or crutches for approximately 6 weeks. B. You are PARTIAL WEIGHT BEARING on your operative lower extremity for at least 6 weeks. C. Wear low heeled shoes with non-slip soles D. Be sure that your floors are free of things that could trip you throw rugs, electrical cords, and small objects. Avoid wet and waxed floors, especially with crutches/walker/cane. E. Try to walk several times a day with rest periods between. F. You may shower 48 hours after surgery and get the incision area wet, but DO NOT soak or submerge incision area in water. (No baths, swimming pools, hot tubs) G. You may have a large, band-aid like dressing over your incision (Aquacel). This will remain on your incision for 7 days, and then can be removed. You CAN shower with this on. If incision is leaking through the dressing, please call the office . H. Do NOT apply soap or any ointment/lotions directly over incision. I. You may use ice as needed to operative site. SPECIAL CARE INSTRUCTIONS: VERY IMPORTANT TO READ AND REVIEW A. You may be at risk for phlebitis or blood clots. a. Wear surgical stockings (ALEJO hose) for 2 weeks after surgery to improve circulation and reduce swelling. b. Take ASPIRIN 81 mg twice daily for 4 weeks or as directed. This is your blood thinner. c. If you are on Coumadin- you will have daily/weekly blood work to monitor your levels. This will be done by either your family physician/shoe dyer (if you are on Coumadin chronically) versus your orthopedic surgeon. Expect a phone call the day of or the day after your blood work is drawn to adjust your dose accordingly. B. There are a few signs you need to watch for after you are home. Call [facility] at [phone] if you experience any of the following: a. If you have a temperature of 101 degrees or higher. b. Sudden increase in pain in your hip not relieved by rest or pain medication. c. Any fluid or drainage from the incision; redness of the incision. d. Shortness of breath or chest pain. B. Please call [facility] at [phone] if you have any questions or concerns about your operation or recovery. C. Call your physician if: a. Temperature is greater than 101 degrees (F). b. Pain is not relieved by prescribed pain medications. c. Increase drainage or redness from incision. d. Unanswered questions or concerns. D. Pain Medication: a. You will be prescribed pain medication upon discharge that should last till your first post-operative appointment. b. If you experience nausea and/or skin rash, discontinue this medication and contact our office for an alternative medication. c. Caution- narcotic pain medication can cause constipation. FOLLOW UP VISIT: Please call [facility] at [phone] to schedule a follow up appointment with Dr. Ibrahim in 10-14 days from the date of your surgery date. Pending Studies at Discharge: No Stand-Alone Forms: [facility], Opioid Pain Management, Smoking Cessation Medications and DC Order Prescriptions: New aspirin 81 mg Tablet,Delayed Release (Dr/Ec) 81 mg PO BID 30 Days Qty: 60 RF: 0 acetaminophen 500 mg Tablet 1,000 mg PO Q8 14 Days Qty: 84 RF: 0 Continued albuterol sulfate [Ventolin HFA] 90 mcg/actuation Hfa Aerosol Inhaler 2 puff INHALATION QID PRN (Reason: Shortness Of Breath Or Wheezing) RF: 0 loratadine [Claritin] 10 mg Tablet 10 mg PO DAILY PRN (Reason: Allergy Symptoms) RF: 0 Women's One Daily 18 mg iron-400 mcg-500 mg Ca Tablet 1 tab PO DAILY RF: 0 methylphenidate HCl 40 mg Capsule,Del Rel,Ext Rel Sprink 40 mg PO QAM RF: 0 Discontinued desogestrel-ethinyl estradiol [Apri] 0.15-0.03 mg Tablet 1 tab PO DAILY RF: 0 Discharge Orders: Discharge Order (Routine); Ordered 11/18/19 Ordered By: Carlos Bañuelos/Other Patient Handouts: DVT Post Op Prevention, Preventing Deep Vein Thrombosis Admission Data Admit Date/Time: 11/16/19 13:59 Attending Provider: Kraig Ibrahim Admit Provider: Kraig Ibrahim Primary Care Provider: Patricio Petty Other Providers: Jeremias Barney ; Kendell Hi Other Interventions: Discharge Summary Assessment (RN) Last Done: 11/18/19 14:54
--- NOTE | 2019-11-22 19:20 | Discharge Summary ---
Date of Service November 17, 2019 Admission HPI Per Admitting Provider The patient is a 24-year-old female with insidious onset of right hip and groin pain. She denies a history of trauma or fall. 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 She presented to [facility] on 11/15/2019 for evaluation. X-rays and CAT scan revealed a nondisplaced right hip intertrochanteric fracture. She was sent home and referred to our office for evaluation. Today in our office, repeat x-rays revealed a nondisplaced hairline fracture of the right hip intertrochanteric region. After discussion with Dr. Ibrahim, it is recommended the patient be admitted to the hospital for ORIF of her fracture. Principal Diagnosis Open reduction internal fixation right hip -Right hip fracture Discharge Exam RLE NVSI +EHL/FHL/TA/GS SILT grossly, +2 DP pulse, compartments soft NT, dressing cdi. Constitutional WD/WN, vitals as above Discharge Data Allergies Allergy/AdvReac Type Severity Reaction Status Date / Time Penicillins Allergy Severe Swelling Verified 11/15/19 21:36 of throat oxycodone AdvReac Mild itch Verified 11/16/19 21:14 Consultations 11/16/19 14:55 Consult Internal Medicine Routine 11/16/19 16:46 Consult Case Management - Discharge Planning Routine 11/16/19 18:31 Consult Anesthesiology Routine 11/17/19 16:40 Consult Case Management - Discharge Planning Routine Procedures Performed Operation Date: 11/17/19 08:50 Actual Procedures p Open Reduction Internal Fixation of Right Hip with Dynamic Hip Screw(Right) - Kraig Ibrahim DO Ordered Studies 11/17/19 12:00 FL fluoroscopy <1hr Routine 11/17/19 13:00 FL hip RT 2-3V Routine Hospital Course (1) Hip fracture: I indicated the patient for ORIF right hip, the risks, benefits and complicati ons of the procedure include but not limited to infection, bleeding, damage to bone, nerves, vessels, surrounding soft tissue, may develop blood clots, loss of function, leg length discrepancy, dislocation, failure of the components, malunion, nonunion, the need for additional surgery and . The patient wished to proceed with surgery at this time and informed consent was obtained. Hospital Course: On 11/17/19 the patient was taken to the operating room, adequate anesthesia administered and underwent ORIF right hip with DHS. The patient tolerated the procedure well and was taken to the PACU in stable condition. Post-operatively the patient was started on a DVT ppx medication and given appropriate IV antibiotics. Consults were placed to medical hospitalists, physical therapy, occupational therapy and case management. On POD#1, the patient did well overnight and their pain was well controlled. Labs were drawn and the Hgb was 11.7. The patient progressed well with PT. Dressings were changed at this time and the incision was clean, dry and intact. The patients hospital stay was relatively uneventful and they were deemed stable by the orthopedic team and consultants to be discharged home with self care on 11/18/19. Discharge Instructions: Upon discharge the patient is to partial weight bear through their operative extremity. They were instructed to keep the incision clean and dry at all times. The patient may shower but should not submerge the incision, avoid bathing, pools and hot tubes. The patient was given a script for pain medication and should take as instructed. The patient was given a script for DVT ppx 81mg ASA BID and should take as directed. The patient was instructed to not drive or travel for long distances until cleared to do so. If the patient develops any symptoms of fevers, chills, nausea, vomiting, increased redness, swelling, pain or drainage from the surgical site, they should notify the office and/or proceed to the nearest emergency room. The patient should follow up in 10-14 days after surgery for their routine post-operative follow-up appointment and should call the office to confirm the date and time. s/p ORIF right hip fracture, DHS POD#1 -clinda x 24 -DVT PPX: SCDs, TEDs, 81mg ASA BID -50% WB RLE -PT/OT -PO XR: demonstrates well aligned, well fixed implant, anatomic alignment of fracture -a.m. labs - as above, hgb 11.7 -DC Planning Total Time Total Time Spent Total Time Spent (In Minutes): 30 Discharge Plan Discharge Items Patient Disposition: Home - Self-Care Reason For Visit: RIGHT HIP FRACTURE Discharge Diagnosis: Open reduction internal fixation right hip -Right hip fracture Condition on Discharge: Good Activity: Per Instructions section Lifting: Wait until after follow-up appointment Bathing: Keep incision dry Bathing Comment: No bathing, pools or hot tubs. Sexual Activity: Wait until after follow-up appointment Exercise/Sports: Wait until after follow-up appointment Driving/Machine Use: No driving Weightbearing: Full weightbearing Non-emergency contact: Primary Care Provider and Surgeon Call non-emergency contact if: you have any medication questions, your symptoms worsen, your pain is not controlled, your pain is worsening, your pain is unusual for you, your pain is concerning for you, you have a fever, your temperature is above 101, your wound has increased redness, your wound has increased drainage and your wound pain has increased Follow-up/Referrals: Patricio Petty MD [Primary Care Provider] - Diet: Regular Addtl Attending Provider Instructions: YOU CAN RESUME YOUR CONTROL MEDICATION IN 1 MONTH. [facility] DISCHARGE INSTRUCTIONS: HIP FRACTURE SELF CARE INSTRUCTIONS: A. You are to ambulate with a walker or crutches for approximately 6 weeks. B. You are PARTIAL WEIGHT BEARING on your operative lower extremity for at least 6 weeks. C. Wear low heeled shoes with non-slip soles D. Be sure that your floors are free of things that could trip you throw rugs, electrical cords, and small objects. Avoid wet and waxed floors, especially with crutches/walker/cane. E. Try to walk several times a day with rest periods between. F. You may shower 48 hours after surgery and get the incision area wet, but DO NOT soak or submerge incision area in water. (No baths, swimming pools, hot tubs) G. You may have a large, band-aid like dressing over your incision (Aquacel). This will remain on your incision for 7 days, and then can be removed. You CAN shower with this on. If incision is leaking through the dressing, please call the office . H. Do NOT apply soap or any ointment/lotions directly over incision. I. You may use ice as needed to operative site. SPECIAL CARE INSTRUCTIONS: VERY IMPORTANT TO READ AND REVIEW A. You may be at risk for phlebitis or blood clots. a. Wear surgical stockings (ALEJO hose) for 2 weeks after surgery to improve circulation and reduce swelling. b. Take ASPIRIN 81 mg twice daily for 4 weeks or as directed. This is your blood thinner. c. If you are on Coumadin- you will have daily/weekly blood work to monitor your levels. This will be done by either your family physician/shipyard painter (if you are on Coumadin chronically) versus your orthopedic surgeon. Expect a phone call the day of or the day after your blood work is drawn to adjust your dose accordingly. B. There are a few signs you need to watch for after you are home. Call [facility] at [phone] if you experience any of the following: a. If you have a temperature of 101 degrees or higher. b. Sudden increase in pain in your hip not relieved by rest or pain medication. c. Any fluid or drainage from the incision; redness of the incision. d. Shortness of breath or chest pain. B. Please call [facility] at [phone] if you have any questions or concerns about your operation or recovery. C. Call your physician if: a. Temperature is greater than 101 degrees (F). b. Pain is not relieved by prescribed pain medications. c. Increase drainage or redness from incision. d. Unanswered questions or concerns. D. Pain Medication: a. You will be prescribed pain medication upon discharge that should last till your first post-operative appointment. b. If you experience nausea and/or skin rash, discont inue this medication and contact our office for an alternative medication. c. Caution- narcotic pain medication can cause constipation. FOLLOW UP VISIT: Please call [facility] at [phone] to schedule a follow up appointment with Dr. Ibrahim in 10-14 days from the date of your surgery date. Pending Studies at Discharge: No Stand-Alone Forms: My [facility], Opioid Pain Management, Smoking Cessation Medications and DC Order Prescriptions: New aspirin 81 mg Tablet,Delayed Release (Dr/Ec) 81 mg PO BID 30 Days Qty: 60 RF: 0 acetaminophen 500 mg Tablet 1,000 mg PO Q8 14 Days Qty: 84 RF: 0 Continued albuterol sulfate [Ventolin HFA] 90 mcg/actuation Hfa Aerosol Inhaler 2 puff INHALATION QID PRN (Reason: Shortness Of Breath Or Wheezing) RF: 0 loratadine [Claritin] 10 mg Tablet 10 mg PO DAILY PRN (Reason: Allergy Symptoms) RF: 0 Women's One Daily 18 mg iron-400 mcg-500 mg Ca Tablet 1 tab PO DAILY RF: 0 methylphenidate HCl 40 mg Capsule,Del Rel,Ext Rel Sprink 40 mg PO QAM RF: 0 Discontinued desogestrel-ethinyl estradiol [Apri] 0.15-0.03 mg Tablet 1 tab PO DAILY RF: 0 Discharge Orders: Discharge Order (Routine); Ordered 11/18/19 Ordered By: Carlos Bañuelos/Other Patient Handouts: DVT Post Op Prevention, Preventing Deep Vein Thrombosis Admission Data Admit Date/Time: 11/16/19 13:59 Attending Provider: Kraig Ibrahim Admit Provider: Kraig Ibrahim Primary Care Provider: Patricio Petty Other Providers: Jeremias Barney ; Kendell Hi Other Interventions: Discharge Summary Assessment (RN) Last Done: 11/18/19 14:54
== END 2019-11-18 17:15 | disposition home or self-care (01) | DRG 482 ==
LOC: 3N 13:59 → INTOOBSV 13:59